=== PATIENT | female | born 1945 | race Caucasian/White ===

== ENCOUNTER 2019-11-14 18:48 | Observation (INO) ==
[2019-11-14] MEDS ORDERED: DILTIAZEM HCL 5 MG/ML VIAL IV ONE ×3 (19:39→21:23)
[2019-11-14 19:52] LABS: Hematocrit 44.9 % (37.0-47.0); Mean Cell Volume 87.2 fl (78-100); Mean Corpuscular Hemoglobin 29.1 pg (27-31); Mean Corpuscular Hgb Conc 33.4 g/dl (32-36); Mean Platelet Volume 10.6 fl (8-12.5); Neutrophil # 7.5 K/mm3 (1.3-6.0); Neutrophil % 69.8 % (42-75.0); Platelet Count 237 K/mm3 (150-450); Red Blood Count 5.15 M/mm3 (4.2-5.4); Red Cell Distribution Width 14.6 % (11.5-14.0); White Blood Count 10.8 K/mm3 (4.0-10.5)
--- NOTE | 2019-11-14 20:01 | ERNOTE ---
Date of Service: 11/14/19 Time Seen by Provider: 11/14/19 19:31 Stated Complaint: Bronchitis Presenting Symptoms:: cough Source: patient Exam Limitations: no limitations Immunizations: IMMUNIZATION HX Immunizations Up to Date Yes History of Influenza Vaccine Yes Hx Pneumococcal Vaccination Yes Allergies/Adverse Reactions: Allergies latex Allergy (Severe, Verified 03/07/19 10:34) facial edema atenolol Allergy (Mild, Verified 03/07/19 10:34) states funny feeling nifedipine [From Procardia] Adverse Reaction (Intermediate, Verified 03/07/19 10:34) constipation Home Medications: HOME MEDICATIONS atorvastatin 20 mg tablet 20 mg PO DAILY 12/09/17 [Last Taken Unknown] benazepril 40 mg tablet 40 mg PO BID tab 12/09/17 [Last Taken Unknown] warfarin 2.5 mg tablet 1 tab PO DAILY 12/09/17 [Last Taken Unknown] calcium carbonate-vitamin D3 600 mg (1,500 mg)-800 unit tablet 1 tab PO DAILY #90 tab 03/04/18 [Last Taken Unknown] furosemide 40 mg tablet 20 mg PO DAILY #90 tab 08/25/18 [Last Taken Unknown] metoprolol tartrate 50 mg tablet 1 tab PO BID #0 tab 08/25/18 [Last Taken Unknown] - Pain Score Pain Score #1 Pain Score: 0 - History of Present Ilness Narrative: The patient is a 74 year old female who presents for dyspnea and cough which has been present since yesterday. There are associated symptoms of fatigu e. The patient denies pain. There are no alleviating factors. There are no aggravating factors. Previous treatments have included: none. The past medical history includes: AFib, HTN, HLD and CKD. The social history is negative. The patient has had no known ill contacts. Patient states that she developed increased dyspnea and cough since yesterday that has been non- productive. Patient states over the past week she has noticed increased lower extremity swelling. Patient states her symptoms are similar to bronchitis in the past. Review of Systems - Review of Systems Constitutional: Present: no symptoms reported. Absent: fever, fatigue EYE: Present: no symptoms reported ENT: Present: nose congestion, nasal drainage. Absent: ear pain, sore throat Respiratory: Present: shortness of breath, cough Cardiology: Present: no symptoms reported. Absent: chest pain Gastrointestinal/Abdominal: Present: nausea. Absent: vomiting, diarrhea, abdominal pain Genitourinary: Present: no symptoms reported. Absent: dysuria, decreased urinary output Musculoskeletal: Present: no symptoms reported Skin: Present: no symptoms reported. Absent: rash Neurological: Present: no symptoms reported. Absent: dizziness/light-headedness All Other Systems: All systems neg except as marked Medical History (Last Reviewed 11/14/19 @ 19:55 by FALLON Clements) Tachycardia (Chronic) Hypertension (Chronic) Hyperlipidemia (Chronic) H/O cardiac murmur (Chronic) Atrial fibrillation (Chronic) Carcinoma in situ of skin Chronic kidney disease, stage 4 (severe) GFR 15-29 Cyst of kidney, acquired Hx of gout Insomnia w/ sleep apnea Surgical History: Surgical History (Last Reviewed 11/14/19 @ 19:55 by FALLON Clements) History of cholecystectomy History of colonoscopy History of hysterectomy History of knee replacement procedure of right knee Family History: Family History (Last Reviewed 11/14/19 @ 19:55 by FALLON Clements) Mother Cancer Father Hypertension Social History: (Last Reviewed 11/14/19 @ 19:55 by FALLON Clements) Social History: Marital status: household members: spouse Service: No Tobacco: Smoking Status: Never smoker Alcohol: alcohol intake: former Substance Use: substance use type: does not use Dietary Habits: caffeine: Yes Physical Exam - Physical Exam General Appearance: Present: wd/wn, alert, no apparent distress Head Exam: Present: normal inspection Eye Exam: Normal inspection: bilateral Neck: Present: normal inspection Respiratory: Present: no respiratory distress, normal breath sounds, no accessory muscle use, lungs clear Cardiovascular/Chest: Present: no murmur, tachycardia Gastrointestinal/Abdominal: Present: normal bowel sounds, nontender, nondistended, soft, no organomegaly Extremity Exam: Present: extremity edema - 2+ pitting bilateral lower extremities Neurological Exam: Present: alert, oriented, normal mood/affect, no motor/sensory deficits Skin Exam: Present: normal color, warm/dry Progress - Date and Time Seen: Date and Time: 11/14/19 20:25 Age adjusted ddimer shows that VTE unlikely as well as patient is on anticoagulation therapy with use of Warfarin. 11/14/19 21:10 Results of testing and imaging consistent with CHF. Patient rate slowed to 89- 100 following repeat administration of Cardizem with EKG showing A-flutter. Case discussed with and will admit for continued monitoring as well as medication administration for diuresis. After discussion will increase Metoprolol dosing and monitor rate control. Discussed plan of care with patient and verbalized understanding and agrees with plan of care. - Results and Orders Patient's Lab Results:: I have reviewed the patient's lab results. - Vital Signs Patient's Vital Signs:: I have reviewed the patient's vital signs. Vital Signs: Vital Signs 11/14/19 18:49 11/14/19 19:16 11/14/19 19:34 Temperature 36.6 C Pulse Rate 139 H 143 H Respiratory Rate 20 Blood Pressure 154/121 H 163/104 H O2 Sat by Pulse Oximetry 96 - EKG EKG #1 EKG: NSR - tachycardia 143, nonspecific ST T wave changes EKG read: Reviewed by me EKG #2 EKG: atrial flutter - no acute ischemic change EKG read: Reviewed by me - X-Ray X-Ray #1 X-Ray: chest Interpretation: Reviewed by me X-ray Comments: IMPRESSION: Interstitial markings are slightly more prominent with faint Jose B lines consistent with mild interstitial edema. No pleural effusions Electronically signed by Joselin Valadez MD. - Progress/Reassessment Chief Complaint: Upper Respiratory Symptoms Progress:: Improved Departure Clinical Impression: CHF (congestive heart failure) Qualifiers: Heart failure type: unspecified Heart failure chronicity: acute Qualified Code(s): I50.9 - Heart failure, unspecified Atrial flutter Qualifiers: Atrial flutter type: unspecified Qualified Code(s): I48.92 - Unspecified atrial flutter - Departure Disposition: Still a patient Condition: Stable
[2019-11-14 20:09] LABS: Troponin I Less than 0.017 ng/mL (0.00-0.10)
[2019-11-14 20:11] LABS: ALT 38 U/L (19-67); AST 25 U/L (0-48); Albumin * 3.9 gm/dl (3.4-5.0); Alkaline Phosphatase * 106 U/L (50-170); Anion Gap 15.4 mmol/L (6.8-13.8); BNP * 2388 pg/mL (5-325); BUN/Creatinine Ratio 16.4 (9.0-21.6); Bilirubin, Total 0.7 mg/dL (0.0-1.1); Blood Urea Nitrogen 18 mg/dL (3-23); Ca. Corrected For Albumin 9.5 mg/dL (8.4-10.2); Calcium * 9.7 mg/dL (7.9-10.9); Carbon Dioxide 26.1 mmol/L (24-32.6); Chloride 103 mmol/L (97-106); Glucose * 133 mg/dL (70-110); Potassium 3.5 mmol/L (3.4-4.6); Sodium 141 mmol/L (132-142); Total Protein 7.7 gm/dL (6.2-8.2)
[2019-11-14 20:35] LABS: Prothrombin Time (Patient) 16.7 Seconds (9.1-10.7)
[2019-11-14 20:41] LABS: INR 1.72 INR (0.92-1.08); Partial Thrombolplastin Time 30.6 Seconds (24-32)
[2019-11-14] MEDS ORDERED: FUROSEMIDE 10 MG/ML VIAL IV ONE (21:07)
[2019-11-14] MEDS ORDERED: METOPROLOL TARTRATE 100 MG TABLET PO ONE (21:07)
[2019-11-15] MEDS ORDERED: DILTIAZEM HCL 5 MG/ML VIAL IV ONE (04:26)
[2019-11-15] MEDS ORDERED: ACETAMINOPHEN 325 MG TABLET PO PRN (08:39)
[2019-11-15] MEDS ORDERED: FUROSEMIDE 20 MG TABLET PO SCH (09:00)
[2019-11-15] MEDS ORDERED: FUROSEMIDE 40 MG TABLET PO SCH (09:00)
[2019-11-15] MEDS ORDERED: METOPROLOL TARTRATE 50 MG TABLET PO SCH (09:00)
--- NOTE | 2019-11-15 09:05 | HP ---
Chief Complaint - Chief Complaint Date of Service: 11/15/19 Time of Service: 08:51 Chief Complaint: I had shortness of breath and cough since yesterday. History of Present Illness: 74-year-old female with past medical history of obesity, hypertension, atrial fibrillation, on chronic anticoagulation therapy, skin cancer, CKD 3, was evaluated in the ER due to worsening dyspnea on exertion and at rest accompanied by persistent dry cough of several days duration. Patient reports that over the past few days she has been experiencing shortness of breath with mild exertion and developed a cough before yesterday. When her symptoms worsened to the point that she could not sleep last night she decided to come to the ER for evaluation. Once in the ER the patient was found to have a markedly elevated BNP and chest x-ray demonstrated interstitial edema making decompensation of CHF very likely. Patient reports that she was in her usual state of health but has noticed an adequate control of her chronic conditions since her diuretic dose was decreased by her seater assembler. The seater assembler explained to her that this would be a trial keeping her on a lower dose of furosemide and that they would see how she tolerates. However since taking a lower dose she is noticed swelling in her lower extremities and shortness of breath, her heart has also been racing. Patient was diagnosed with atrial fibrillation with rapid ventricular response while in the ER and was treated with multiple doses of Cardizem as well as metoprolol. She was placed on a telemetry for close monitoring. Medical History (Last Reviewed 11/14/19 @ 22:34 by Agustina Berry RN) Tachycardia (Chronic) Hypertension (Chronic) Hyperlipidemia (Chronic) H/O cardiac murmur (Chronic) Atrial fibrillation (Chronic) Carcinoma in situ of skin Chronic kidney disease, stage 4 (severe) GFR 15-29 Cyst of kidney, acquired Hx of gout Insomnia w/ sleep apnea Surgical History: Surgical History (Last Reviewed 11/14/19 @ 22:34 by Agustina Berry RN) History of cholecystectomy History of colonoscopy History of hysterectomy History of knee replacement procedure of right knee Family History: Family History (Last Reviewed 11/14/19 @ 22:34 by Agustina Berry RN) Mother Cancer Father Hypertension Social History: (Last Reviewed 11/14/19 @ 22:34 by Agustina Berry RN) Social History: Marital status: household members: spouse Service: No Tobacco: Smoking Status: Never smoker Alcohol: alcohol intake: former Substance Use: substance use type: does not use Dietary Habits: caffeine: Yes Peds Patient Hx - Developmental: No Pertinent Hx Peds Patient Hx - Medical: No Pertinent Hx Peds Patient Hx - Cardiac/Respiratory: No Pertinent Hx Peds Patient Hx - Surgical: No Surgical History Patient History - Cancer: No Hx of Cancer Review Of Systems (GEN) - Review of Systems Generalized/Overall Review: Present: Fatigue EENTM: Present: No Symptoms Reported Respiratory: Present: Cough, Shortness of Breath Cardiac: Present: Edema - Left-sided 2+ pedal edema Abdominal: Present: No Symptoms Reported Genitourinary: Present: No Symptoms Reported Musculoskeletal: Present: No Symptoms Reported Neurological: Present: No Symptoms Reported Skin: Present: No Symptoms Reported Endocrine: Present: No Symptoms Reported Immunizations: IMMUNIZATION HX Immunizations Up to Date Yes History of Influenza Vaccine Yes Hx Pneumococcal Vaccination Yes Allergies/Adverse Reactions: Allergies Allergy/AdvReac Type Severity Reaction Status Date / Time latex Allergy Severe facial Verified 03/07/19 10:34 edema atenolol Allergy Mild states Verified 03/07/19 10:34 funny feeling nifedipine [From Procardia] AdvReac Intermediate constipatio Verified 03/07/19 10:34 n Home Medications: HOME MEDICATIONS atorvastatin 20 mg tablet 20 mg PO DAILY 12/09/17 [Last Taken Unknown] benazepril 40 mg tablet 40 mg PO BID tab 12/09/17 [Last Taken Unknown] warfarin 2.5 mg tablet 3.75 mg PO SUMOTUWETHSA 12/09/17 [Last Taken Unknown] calcium carbonate-vitamin D3 600 mg (1,500 mg)-800 unit tablet 1 tab PO DAILY #90 tab 03/04/18 [Last Taken Unknown] furosemide 40 mg tablet 20 mg PO DAILY #90 tab 08/25/18 [Last Taken Unknown] metoprolol tartrate 50 mg tablet 50 mg PO BID #0 tab 08/25/18 [Last Taken Unknown] Warfarin Sodium [Jantoven] 2.5 mg PO FR 11/15/19 [Last Taken Unknown] Exam - Exam Vital Signs: Vital Signs - Last Taken Temp 36.9 C 11/15/19 07:02 Pulse 111 H 11/15/19 07:02 Resp 14 11/15/19 07:02 BP 132/86 11/15/19 07:02 Pulse Ox 94 11/15/19 07:02 Constitutional: Present: Alert, Oriented x3, Cooperative, Well developed, Well nourished, No distress, Elderly Eye Exam: bilateral eye: normal inspection, PERRL, EOMI Neck: Present: non-tender, full range of motion, supple, normal inspection, trachea midline Back Exam: Present: normal inspection, no CVA tenderness, no vertebral tenderness Breasts: Present: Exam deferred Respiratory: Present: chest non-tender, normal breath sounds, no respiratory distress, no accessory muscle use, crackles - Crackles in left lung base Cardiovascular/Chest: Present: normal peripheral pulses, no chest tenderness, no gallop, no JVD, irregularly irregular, edema Peripheral Pulses: carotid (R): 3+, carotid (L): 3+, dorsalis-pedis (R): 3+, dorsalis-pedis (L): 3+ Abdomen: Present: Normal bowel sounds, soft, nontender, nondistended, no rebound tenderness, no hepatospenomegaly, no masses, obese /Rectal: Present: Exam deferred Extremity: Present: normal range of motion, non-tender, normal inspection, no calf tenderness, normal capillary refill, pedal edema Skin Exam: Present: normal color, warm/dry, no cyanosis Lymphatic: Present: no adenopathy Neurologic: Present: printed circuit board drafter II-XII nml as tested, normal cerebellar test, no motor/sensory deficits, alert, normal mood/affect, oriented x 3 Appearance: Present: appropriate appearance, appropriate insight, neat, no memory impairment Eye contact: Present: cooperative, good eye contact, normal speech Thoughts: Present: normal thought pattern, no apparent hallucination Diagnostic Studies: Abnormal Lab Results 11/14/19 11/14/19 11/14/19 Range/Units 19:45 19:45 19:45 WBC 10.8 H (4.0-10.5) K/mm3 RDW 14.6 H (11.5-14.0) % Neutrophils # 7.5 H (1.3-6.0) K/mm3 PT (9.1-10.7) Seconds INR (Anticoag Therapy) (0.92-1.08) INR D-Dimer 0.50 H (0.19-0.49) ug/mL Anion Gap 15.4 H (6.8-13.8) mmol/L Est GFR (Non-Af Amer) 52 L D (60-130) mL/min Random Glucose 133 H (70-110) mg/dL B-Natriuretic Peptide 2388 H (5-325) pg/mL 11/14/19 Range/Units 19:45 WBC (4.0-10.5) K/mm3 RDW (11.5-14.0) % Neutrophils # (1.3-6.0) K/mm3 PT 16.7 H (9.1-10.7) Seconds INR (Anticoag Therapy) 1.72 H (0.92-1.08) INR D-Dimer (0.19-0.49) ug/mL Anion Gap (6.8-13.8) mmol/L Est GFR (Non-Af Amer) (60-130) mL/min Random Glucose (70-110) mg/dL B-Natriuretic Peptide (5-325) pg/mL Laboratory Results WBC 10.8 K/mm3 (4.0-10.5) H 11/14/19 19:45 RBC 5.15 M/mm3 (4.2-5.4) 11/14/19 19:45 Hgb 15.0 gm/dL (12.5-16.0) 11/14/19 19:45 Hct 44.9 % (37.0-47.0) 11/14/19 19:45 MCV 87.2 fl (78-100) 11/14/19 19:45 MCH 29.1 pg (27-31) 11/14/19 19:45 MCHC 33.4 g/dl (32-36) 11/14/19 19:45 RDW 14.6 % (11.5-14.0) H 11/14/19 19:45 Plt Count 237 K/mm3 (150-450) 11/14/19 19:45 MPV 10.6 fl (8-12.5) 11/14/19 19:45 Immature Gran % (Auto) 0.20 % (0.001-0.429) 11/14/19 19:45 Immature Gran # (Auto) 0.02 K/mm3 (0.000-0.0310) 11/14/19 19:45 Neutrophils % 69.8 % (42-75.0) 11/14/19 19:45 Lymphocytes % 22.1 % (20-51) 11/14/19 19:45 Monocytes % 4.7 % (0.0-9) 11/14/19 19:45 Eosinophils % 2.5 % (0.0-3.0) 11/14/19 19:45 Basophils % 0.7 % (0.0-1.0) 11/14/19 19:45 Nucleated RBC % 0.0 k/mm3 (0-1) 11/14/19 19:45 Neutrophils # 7.5 K/mm3 (1.3-6.0) H 11/14/19 19:45 Lymphocytes # 2.38 k/mm3 (1.5-3.5) 11/14/19 19:45 Monocytes # 0.5 k/mm3 (0.0-1.0) 11/14/19 19:45 Eosinophils # 0.3 k/mm3 (0.0-0.7) 11/14/19 19:45 Absolute Basophils 0.1 k/mm3 (0.0-0.1) 11/14/19 19:45 PT 16.7 Seconds (9.1-10.7) H 11/14/19 19:45 INR (Anticoag Therapy) 1.72 INR (0.92-1.08) H 11/14/19 19:45 PTT (Nikita) 30.6 Seconds (24-32) 11/14/19 19:45 D-Dimer 0.50 ug/mL (0.19-0.49) H 11/14/19 19:45 Sodium 141 mmol/L (132-142) 11/14/19 19:45 Plasma Sodium 142 mmol/L (130-142) 11/14/19 19:45 Potassium 3.5 mmol/L (3.4-4.6) 11/14/19 19:45 Chloride 103 mmol/L (97-106) 11/14/19 19:45 Carbon Dioxide 26.1 mmol/L (24-32.6) 11/14/19 19:45 Anion Gap 15.4 mmol/L (6.8-13.8) H 11/14/19 19:45 BUN 18 mg/dL (3-23) 11/14/19 19:45 Creatinine 1.10 mg/dL (0.4-1.4) 11/14/19 19:45 Est GFR (Non-Af Amer) 52 mL/min (60-130) L D 11/14/19 19:45 BUN/Creatinine Ratio 16.4 (9.0-21.6) 11/14/19 19:45 Random Glucose 133 mg/dL (70-110) H 11/14/19 19:45 Calcium 9.7 mg/dL (7.9-10.9) 11/14/19 19:45 Calcium Adj for Albumin 9.5 mg/dL (8.4-10.2) 11/14/19 19:45 Total Bilirubin 0.7 mg/dL (0.0-1.1) 11/14/19 19:45 AST 25 U/L (0-48) 11/14/19 19:45 ALT 38 U/L (19-67) 11/14/19 19:45 Alkaline Phosphatase 106 U/L (50-170) 11/14/19 19:45 Troponin I Less than 0.017 ng/mL (0.00-0.10) 11/14/19 19:45 B-Natriuretic Peptide 2388 pg/mL (5-325) H 11/14/19 19:45 Total Protein 7.7 gm/dL (6.2-8.2) 11/14/19 19:45 Albumin 3.9 gm/dl (3.4-5.0) 11/14/19 19:45 Assessment/Plan - Narrative Narrative: Patient was evaluated and medical chart was reviewed and decision to admit to observation for diagnosis of decompensated CHF, atrial fibrillation with rapid ventricular response was made. Patient was placed on telemetry which demonstrate an inadequately controlled heart rate and her known atrial fibrillation. She received multiple doses of calcium channel harish in addition to a beta-harish, however this morning she has not been administered any medications. Given her current elevated heart rate we decreased her metoprolol and a dose will be given to her shortly to control the heart rate. Patient also explains that her diuretic dose was recently decreased by her seater assembler but she appears to not tolerating the new dose well, therefore we will increase her Lasix back to 40 mg daily. In the meantime we will treat her with multiple doses of IV Lasix to remove some fluid. Patient is on chronic anticoagulation therapy with Coumadin which is managed by the Coumadin clinic at [facility], will keep the Coumadin during hospitalization for prophylaxis for VTE.. She is currently comfortable and denies any chest pain dizziness or ongoing shortness of breath. We will keep monitoring her closely and reevaluate in a couple of hours. - Assessment/Plan (1) Acute CHF Problem: Acute (2) CHF (congestive heart failure) Problem: Acute Qualifiers: Heart failure type: unspecified Heart failure chronicity: acute Qualified Code(s): I50.9 - Heart failure, unspecified (3) Tachycardia Problem: Acute (4) Hypertension Problem: Chronic Qualifiers: (5) Atrial fibrillation Problem: Chronic Qualifiers: (6) Atrial flutter Problem: Acute (7) Chronic anticoagulation Problem: Chronic
[2019-11-15] MEDS: METOPROLOL TARTRATE 100 MG TABLET PO SCH ×2 (09:14→20:42)
[2019-11-15] MEDS: CALCIUM CARBONATE/VITAMIN D3 1 TAB TABLET PO SCH (09:14)
[2019-11-15] MEDS: ENALAPRIL MALEATE 20 MG TABLET PO SCH ×2 (09:14→20:43)
[2019-11-15] MEDS: FUROSEMIDE 40 MG TABLET PO SCH ×2 (09:21→20:45)
[2019-11-15] MEDS ORDERED: METOPROLOL TARTRATE 1 MG/ML AMPUL IV ONE (12:25)
[2019-11-15] MEDS ORDERED: DILTIAZEM HCL 30 MG TABLET PO SCH (14:30)
[2019-11-15] MEDS ORDERED: WARFARIN SODIUM 2.5 MG TABLET PO SCH (17:00)
[2019-11-15] MEDS: DILTIAZEM HCL 30 MG TABLET PO SCH (20:41)
[2019-11-15] MEDS ORDERED: ROSUVASTATIN CALCIUM 10 MG TABLET PO SCH (21:00)
[2019-11-16] MEDS ORDERED: PANTOPRAZOLE SODIUM 40 MG TABLET.EC PO SCH (07:00)
[2019-11-16 08:21] LABS: Prothrombin Time (Patient) 14.7 Seconds (9.1-10.7)
[2019-11-16 08:31] LABS: INR 1.51 INR (0.92-1.08)
[2019-11-16] MEDS ORDERED: WARFARIN SODIUM 4 MG TABLET PO ONE (08:50)
[2019-11-16] MEDS: CALCIUM CARBONATE/VITAMIN D3 1 TAB TABLET PO SCH (09:04)
[2019-11-16] MEDS: METOPROLOL TARTRATE 100 MG TABLET PO SCH (09:04)
[2019-11-16] MEDS: DILTIAZEM HCL 30 MG TABLET PO SCH (09:04)
[2019-11-16] MEDS: ENALAPRIL MALEATE 20 MG TABLET PO SCH (09:05)
--- NOTE | 2019-11-16 09:10 | PN ---
Subjective - Date and Time Seen Date: 11/16/19 Time: 09:00 Subjective Narrative: I feel fine just my heart is racing Objective Objective Narrative: 74-year-old female admitted for atrial fibrillation with rapid ventric ular response, and CHF exacerbation was evaluated at bedside and was found to be afebrile and in no acute distress. Patient's heart rate finally achieved rate control yesterday evening and she did well throughout the night, however this morning she got up to go to the bathroom and her heart rate shot up again within the 120-130 range. However she denies shortness of breath or any chest pain. Her toll collector was contacted yesterday and he recommended increasing beta- blockers which we did and to add calcium channel blockers if necessary. When response to increased beta-harish was not adequate calcium channel harish was added which produce better results. However this morning her heart rate is up again so we will administer her morning doses and reevaluate while she is on telemetry. - Review of Systems Generalized/Overall Review: Reports: No Symptoms Reported EENTM: Reports: No Symptoms Reported Respiratory: Reports: No Symptoms Reported Cardiac: Reports: No Symptoms Reported Abdominal: Reports: No Symptoms Reported Genitourinary Symptoms: Reports: No Symptoms Reported Musculoskeletal Complaints: Reports: No Symptoms Reported Neurological: Reports: No Symptoms Reported Skin: Reports: No Symptoms Reported Endocrine: Reports: No Symptoms Reported - Vitals Vitals: Last Vital Signs Temp 36.1 C 11/16/19 07:00 Pulse 131 H 11/16/19 07:00 Resp 18 11/16/19 07:00 BP 130/84 11/16/19 07:00 Pulse Ox 95 11/16/19 07:00 - Abnormal Lab Findings Abnormal Lab Findings: Abnormal Lab Results 11/16/19 Range/Units 08:08 PT 14.7 H (9.1-10.7) Seconds INR (Anticoag Therapy) 1.51 H (0.92-1.08) INR - Exam Constitutional: Present: Alert, Oriented x3, Cooperative, Well developed, Well nourished, No distress ENT Exam: Present: normal ENT inspection, hearing grossly normal Neck: Present: non-tender, full range of motion, supple, normal inspection, trachea midline Breasts: Present: Exam deferred Respiratory: Present: chest non-tender, lungs clear, normal breath sounds, no respiratory distress, no accessory muscle use Cardiovascular/Chest: Present: normal peripheral pulses, no chest tenderness, no gallop, no JVD, no murmur, no rub, irregularly irregular Abdomen: Present: Normal bowel sounds, soft, nontender, nondistended, no rebound tenderness, no hepatospenomegaly, no masses /Rectal: Present: Exam deferred Extremity: Present: normal range of motion, non-tender, normal inspection, no calf tenderness, pedal edema Skin Exam: Present: normal color, warm/dry, no cyanosis Lymphatic: Present: no adenopathy Neurologic: Present: bread molder II-XII nml as tested, normal cerebellar test, no motor/sensory deficits, alert, normal mood/affect, oriented x 3 Appearance: Present: appropriate appearance, appropriate insight, neat, no memory impairment Eye contact: Present: cooperative, good eye contact, normal speech Thoughts: Present: normal thought pattern, no apparent hallucination Assessment/Plan Plan Narrative: Patient's meds were optimized and she was administered her morning doses, will keep her on telemetry and monitor for adequate response with rate control. Once that is achieved patient will most likely be discharge with instructions to follow-up with her toll collector. - Problems/Diagnosis (1) Acute CHF Problem: Acute (2) CHF (congestive heart failure) Problem: Chronic Qualifiers: Heart failure type: unspecified Heart failure chronicity: acute Qualified Code(s): I50.9 - Heart failure, unspecified (3) Tachycardia Problem: Acute (4) Hypertension Problem: Chronic Qualifiers: (5) Atrial fibrillation Problem: Chronic Qualifiers: (6) Atrial flutter Problem: Acute (7) Chronic anticoagulation Problem: Chronic (8) Atrial fibrillation with RVR Problem: Acute
[2019-11-16] MEDS ORDERED: FUROSEMIDE 10 MG/ML VIAL IV SCH (09:15)
[2019-11-16] MEDS ORDERED: FUROSEMIDE 40 MG TABLET PO SCH (09:26)
[2019-11-16] MEDS ORDERED: DILTIAZEM HCL 30 MG TABLET PO ONE (11:06)
[2019-11-16] MEDS ORDERED: DILTIAZEM HCL 60 MG TABLET PO SCH (13:00)
--- NOTE | 2019-11-16 13:20 | DS ---
(1) Acute CHF Problem: Resolved (2) CHF (congestive heart failure) Problem: Chronic Qualifiers: Heart failure type: unspecified Heart failure chronicity: acute Qualified Code(s): I50.9 - Heart failure, unspecified (3) Tachycardia Problem: Resolved (4) Hypertension Problem: Chronic Qualifiers: (5) Atrial fibrillation Problem: Chronic Qualifiers: (6) Atrial flutter Problem: Acute (7) Chronic anticoagulation Problem: Chronic (8) Atrial fibrillation with RVR Problem: Resolved Date of Discharge:: 11/16/19 Hospital Course: 74-year-old female admitted for atrial flutter with rapid ventricular response and CHF exacerbation has finally reach rate control after the patient w as treated with multiple doses of beta-blockers and calcium channel blockers. I believe what precipitated the symptoms that led to this hospitalization was the patient's usual dose of oral diuretics was decreased by her federal mediator and she just did not tolerate the lower dose. The patient became fluid overloaded with decompensated her chronic atrial fibrillation and led to RVR. However she now appears comfortable and denies any chest pain or shortness of breath or any other symptoms. Therefore we will discharge patient with a higher dose of beta- blockers and on oral calcium channel blockers and with a follow-up with her federal mediator and myself her PCP. Patient's INR was found to be subtherapeutic this morning so and extra dose of Coumadin was given, will discharge with orders to recheck INR tomorrow Procedures Performed: none Results and Findings: Lab Pending Results 11/14/19 19:45: WBC 10.8 H, RBC 5.15, Hgb 15.0, Hct 44.9, MCV 87.2, MCH 29.1, MCHC 33.4, RDW 14.6 H, Plt Count 237, MPV 10.6, Immature Gran % (Auto) 0.20, Immature Gran # (Auto) 0.02, Neutrophils % 69.8, Lymphocytes % 22.1, Monocytes % 4.7, Eosinophils % 2.5, Basophils % 0.7, Nucleated RBC % 0.0, Neutrophils # 7.5 H, Lymphocytes # 2.38, Monocytes # 0.5, Eosinophils # 0.3, Absolute Basophils 0.1 11/14/19 19:45: Sodium 141, Plasma Sodium 142, Potassium 3.5, Chloride 103, Carbon Dioxide 26.1, Anion Gap 15.4 H, BUN 18, Creatinine 1.10, Est GFR (Non-Af Amer) 52 L D, BUN/Creatinine Ratio 16.4, Random Glucose 133 H, Calcium 9.7, Calcium Adj for Albumin 9.5, Total Bilirubin 0.7, AST 25, ALT 38, Alkaline Phosphatase 106, Troponin I Less than 0.017, B-Natriuretic Peptide 2388 H, Total Protein 7.7, Albumin 3.9 11/14/19 19:45: D-Dimer 0.50 H 11/14/19 19:45: PT 16.7 H, INR (Anticoag Therapy) 1.72 H, PTT (Nikita) 30.6 11/16/19 08:08: PT 14.7 H, INR (Anticoag Therapy) 1.51 H Discharge Location: Home Disposition: Home self-care Condition: Stable Face to Face Encounter completed per [facility] Guidelines: No Discharge Activity: Activity as tolerated Discharge Diet: Low salt, Low fat/chol Additional Patient Instructions (free text): Follow up Echo to be done on Follow up with Dr Medrano on ThursdayNovember 22, at 9:45am, [facility]. To see Dr Robert Hung, Cardiology at [facility] on ThursdayNovember 24 at 9:00am. Please fax records to Dr. Hung at fax # [phone]. Prescriptions (Any new or edited meds): Diltiazem HCl [Cardizem] 60 mg PO QID #120 tab Transmission Status: Pending to [facility] Furosemide [Lasix] 40 mg PO DAILY #30 tab Transmission Status: Pending to [facility] Metoprolol Tartrate [Lopressor] 100 mg PO BID #120 tab Transmission Status: Pending to [facility] Complete Home Medications List: Complete Home Medication List: atorvastatin 20 mg tablet 20 mg PO DAILY 12/09/17 benazepril 40 mg tablet 40 mg PO BID tab 12/09/17 warfarin 2.5 mg tablet 3.75 mg PO SUMOTUWETHSA 12/09/17 calcium carbonate-vitamin D3 600 mg (1,500 mg)-800 unit tablet 1 tab PO DAILY #90 tab 03/04/18 furosemide 40 mg tablet 20 mg PO DAILY #90 tab 08/25/18 Warfarin Sodium [Jantoven] 2.5 mg PO FR 11/15/19 Diltiazem HCl [Cardizem] 60 mg PO QID #120 tab 11/16/19 Furosemide [Lasix] 40 mg PO DAILY #30 tab 11/16/19 Metoprolol Tartrate [Lopressor] 100 mg PO BID #120 tab 11/16/19 Warfarin Sodium [Coumadin] 2.5 mg PO Fr@1700 tab 11/16/19 Forms: Patient Portal Registration
[2019-11-16 13:50] VITALS: BP 140/82
[2019-11-17] MEDS ORDERED: FUROSEMIDE 40 MG TABLET PO SCH (09:25)
[2019-11-18] MEDS ORDERED: WARFARIN SODIUM 2.5 MG TABLET PO SCH (17:00)
== END 2019-11-16 13:35 | disposition home or self-care (01) ==
LOC: ER 18:48 → MS 18:48
PROVIDERS: ADMIT Family Medicine; ATTEND Family Medicine
DX: N18.3 Chronic kidney disease, stage 3 (moderate); I48.20 Chronic atrial fibrillation, unspecified; I13.0 Hypertensive heart and chronic kidney disease with heart failure and stage 1 through stage 4 chronic kidney disease, or unspecified chronic kidney disease; E78.5 Hyperlipidemia, unspecified; I48.92 Unspecified atrial flutter; Z79.01 Long term (current) use of anticoagulants
CPT/HCPCS: 36415; 71020; 71046; 80053; 83519; 83880; 84484; 85025; 85379; 85610; 85730; 93005; 94760; 96374; 96375; 96376; 99285; G0378